=== PATIENT | male | born 1980 | race Caucasian/White ===

== ENCOUNTER 2021-08-13 10:54 | Emergency (ER) | payer OTHER ==
[2021-08-13 11:14] VITALS: BP 113/73; PULSE 98; TEMP 98.1; BMI 22.3
[2021-08-13] MEDS ORDERED: MECLIZINE HCL 25 MG TABLET (FP) PO ONE (12:06)
[2021-08-13] MEDS ORDERED: METOCLOPRAMIDE HCL INJECTION 10 MG/2 ML VIAL IVPUSH ONE (12:06)
[2021-08-13] MEDS ORDERED: SODIUM CHLORIDE 0.9% 500 ML INFUS.BAG IV ONE (12:06)
[2021-08-13] MEDS ORDERED: MECLIZINE HCL 25 MG TABLET (FP) ONE (12:15)
[2021-08-13] MEDS ORDERED: METOCLOPRAMIDE HCL INJECTION 10 MG/2 ML VIAL ONE (12:15)
== END 2021-08-13 13:21 | disposition home or self-care (01) ==
LOC: JER 10:54
PROC: 3E033GC Introduction of Other Therapeutic Substance into Peripheral Vein, Percutaneous Approach (ICD-10-PCS; principal; 2021-08-13)
DX: R42 Dizziness and giddiness (principal)
CPT/HCPCS: 93005; 93010; 99284-25

== ENCOUNTER 2024-07-23 09:32 | Emergency (ER) | payer SELFPAY ==
[2024-07-23 09:40] VITALS: BP 116/72; PULSE 83; RESP 18; TEMP 98.2; BMI 23.3
[2024-07-23] MEDS ORDERED: KETOROLAC TROMETHAMINE 30 MG/1 ML VIAL ONE (10:44)
[2024-07-23] MEDS ORDERED: ACETAMINOPHEN 500 MG TABLET (FP) ONE (10:44)
[2024-07-23] MEDS ORDERED: DIPHTH,PERTUSS(ACELL),TET 0.5 ML DISP.SYRIN IM ONE (10:46)
[2024-07-23] MEDS: DIPHTH,PERTUSS(ACELL),TET 0.5 ML DISP.SYRIN IM ONE (10:52)
[2024-07-23] MEDS: ACETAMINOPHEN 500 MG TABLET (FP) PO ONE (10:53)
[2024-07-23] MEDS: KETOROLAC TROMETHAMINE 30 MG/1 ML VIAL IM ONE (10:53)
== END 2024-07-23 12:29 | disposition home or self-care (01) ==
LOC: JERFT 09:32
PROC: 3E0233Z Introduction of Anti-inflammatory into Muscle, Percutaneous Approach (ICD-10-PCS; principal; 2024-07-23)
PROC: 3E0234Z Introduction of Serum, Toxoid and Vaccine into Muscle, Percutaneous Approach (ICD-10-PCS; 2024-07-23)
DX: R07.89 Other chest pain (principal); M25.511 Pain in right shoulder; Z23 Encounter for immunization; V03.131A Pedestrian on standing electric scooter injured in collision with car, pick-up or van in traffic accident, initial encounter
CPT/HCPCS: 71046-TC-FY; 72170-TC-FY; 73000-TC-RT-FY; 73030-TC-RT-FY; 73060-TC-RT-FY; 73070-TC-RT-FY; 73090-TC-RT-FY; 73110-TC-RT-FY; 73130-TC-RT-FY; 90715; 99284-25